=== PATIENT | female | born 1955 | race Caucasian/White ===

== ENCOUNTER 2017-03-11 07:30 | Day surgery (SDC) | payer MEDICARE, MEDICAID ==
[~2017-03-11] VITALS: Ht 153.7 cm; Wt 99.8 kg
[~2017-03-11 07:30] MED LIST: 0.9% Sodium Chloride 1,000 ML IV SCH; EXEN2VIA SUBQ; IBUP200C PO; INSU100V7 SUBQ; METF500T4 PO; Sodium Chloride LOK Flush 10 mL Syringe IV PRN; fentaNYL-PF 50 mCg/mL 2 mL Inj IVPUSH PRN
[2017-03-11 07:50] VITALS: BP 99/62; PULSE 118; RESP 17; O2SAT 98
[2017-03-11 08:43] VITALS: BP 105/63; PULSE 100; RESP 16; O2SAT 96
[2017-03-11 08:53] VITALS: BP 107/60; PULSE 81; PULSE 88; RESP 16; O2SAT 91; O2SAT 95
[2017-03-11 09:03] VITALS: BP 123/73; PULSE 89; RESP 16; O2SAT 94
--- NOTE | 2017-03-11 23:26 | ENDO ---
[address] [address] ENDOSCOPY PROCEDURE PATIENT: IVONNE RAMÍREZ : 1955 MR#: [id number] ADMIT: 03/11/2017 JOB ID: [id number] DATE OF SERVICE: 03/11/2017 PROCEDURE: Esophagogastroduodenoscopy. INDICATIONS: Gastroesophageal reflux as well as a history of cirrhosis. The patient's ASA classification is 2. Mallampati score is 2. MEDICATIONS: Versed 4 mg and fentanyl 100 mcg. INSTRUMENT USED: GIF H 180 J. PROCEDURE DETAILS: After informed consent was obtained, the patient was brought into the GI suite, where she was placed on oxygen via nasal cannula and monitored with continuous pulse oximeter, telemetry, and blood pressure monitoring. A time-out was performed. Then, she was placed in a left lateral decubitus position and medications were administered for sedation. A bite block was placed. The standard EGD scope was then inserted through the bite block and advanced under direct visualization to the second portion of the duodenum without difficulty. FINDINGS: 1. Normal-appearing duodenal bulb, first and second portion. 2. Normal-appearing pylorus, antrum and gastric body. 3. Retroflexed views in the gastric body revealed a 3-4 mm polyp in the fundus that was removed with cold biopsy forceps. 4. The GE junction was at approximately 38 cm. Arising from the GE junction were two short tongues of salmon-colored mucosa suggestive of Lund's. Multiple biopsies were obtained. 5. Remainder of the esophagus was otherwise unremarkable. 6. No gastric or esophageal varices seen on today's exam. IMPRESSION: 1. Gastric polyp, fundus, completely removed with cold biopsy forceps. 2. 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 RECOMMENDATIONS: 1. Await biopsy results. 2. Reflux precautions. 3. Recommend weight loss and continue PPI. 4. Follow up in GI clinic. COMPLICATIONS: None estimated. BLOOD LOSS: Less than 5 mL.
--- NOTE | 2017-03-12 13:15 | PATH ---
SURGICAL PATHOLOGY Attending Physician:Jessica Bender CASE STATUS: Signed Out PATIENT NAME: IVONNE RAMÍREZ PID: [id number] : 1955 DATE COLLECTED:03/11/2017 17:55 SPECIMEN: 1: Stomach, Biopsy 2: Esophagus, Biopsy CLINICAL HISTORY: CIRRHOSIS OF LIVER 1. FUNDAL POLYP 2. DISTAL ESOPHAGUS BX FINAL DIAGNOSIS: 1. Fundal Polyp, Biopsy: Portion of gastric body-type mucosa with features of hyperplastic polyp and associated benign xanthomatous changes within the lamina propria. Negative for intestinal metaplasia, dysplasia, and malignancy. 2. Distal Esophagus, Biopsy: Squamocolumnar junctional mucosa with specialized intestinal metaplasia, consistent with Lund' s esophagus. Negative for dysplasia and malignancy. ICD10: K74.60 GROSS DESCRIPTION: The specimen is received in two formalin filled containers labeled with the patient's name. 1). The specimen is sublabeled "fundal polyp" and consists of a 0.3 x 0.3 x 0.3 CM portion of tissue which is entirely submitted in cassette 1A. 2). The specimen is sublabeled "distal esophagus" and consists of 2 portions of tissue which aggregate to 0.3 x 0.3 x 0.2 CM. The specimen is entirely submitted in cassette 2A. 03/11/2017 [facility] ICD-9 CODES: CPT CODES: 1: 21808 2: 21056 Electronically Signed Out Flower Shields MD [facility] Pathology [facility], [place] [address] Technical component performed at [facility], [address] [place] [address] Ave[address], [address]
== END 2017-03-11 23:59 | disposition home or self-care (01) ==
LOC: END 07:30
PROVIDERS: ATTEND Internal Medicine Gastroenterology
DX: K74.60 Unspecified cirrhosis of liver (principal); K21.9 Gastro-esophageal reflux disease without esophagitis; K31.7 Polyp of stomach and duodenum; Z86.19 Personal history of other infectious and parasitic diseases; G47.33 Obstructive sleep apnea (adult) (pediatric); E11.9 Type 2 diabetes mellitus without complications; G25.81 Restless legs syndrome; Z79.4 Long term (current) use of insulin; Z79.84 Long term (current) use of oral hypoglycemic drugs; F17.210 Nicotine dependence, cigarettes, uncomplicated
CPT/HCPCS: 43239; 88305; G0500; J7030